=== PATIENT | female | born 1995 | race Two or more races ===

== ENCOUNTER 2020-03-14 20:13 | Emergency (ER) | payer OTHER ==
[~2020-03-14] VITALS: Ht 165.1 cm; Wt 137.0 kg
[2020-03-14 21:19] LABS: CLARITY URINE CLOUDY (CLEAR); COLOR URINE YELLOW (YELLOW); KETONES URINE NEGATIVE (NEGATIVE); LEUKOCYTE ESTERASE URINE 3+ (NEGATIVE); NITRITE URINE NEGATIVE (NEGATIVE); OCCULT BLOOD URINE NEGATIVE (NEGATIVE); PROTEIN URINE NEGATIVE (NEGATIVE); SPECIFIC GRAVITY URINE 1.018 (1.005-1.030)
[2020-03-14] MEDS ORDERED: SODIUM CHLORIDE 0.9% 1,000 ML IV ONE (23:31)
[2020-03-14] MEDS ORDERED: ONDANSETRON HCL 4MG/2ML INJ IV ONE (23:45)
[2020-03-14] MEDS ORDERED: MORPHINE SULFATE 4 MG/ML CPJ (NOT FOR IM USE) IV ONE (23:45)
[2020-03-14 23:57] LABS: BASOPHILS % 0.5 % (0.0-2.0); EOSINOPHILS % 1.1 % (0.0-5.0); HEMATOCRIT. 40.9 % (36.0-48.0); HEMOGLOBIN. 14.1 g/dL (12.0-16.0); LYMPHOCYTES % 17.7 % (20.0-50.0); MEAN CORPUSCULAR HEMOGLOBIN 29.6 pg (28.0-32.0); MEAN CORPUSCULAR VOLUME 86.1 fL (81.0-99.0); MEAN PLATELET VOLUME 7.6 fl (7.4-10.4); MONOCYTES % 4.9 % (2.0-8.0); NEUTROPHILS % 75.8 % (40.0-76.0); PLATELET 315 x1000/uL (130-400); RED BLOOD CELL COUNT 4.75 mill/uL (4.2-5.4); RED CELL DISTRIBUTION WIDTH 13.6 % (11.6-14.6)
[2020-03-15 00:05] LABS: CHLORIDE 107 mEq/L (98-107)
[2020-03-15 02:16] VITALS: BP 107/64
== END 2020-03-15 03:09 | disposition home or self-care (01) ==
LOC: ER 20:13
DX: N83.291 Other ovarian cyst, right side (principal)
CPT/HCPCS: 36415; 76830; 76856; 80048; 81003; 81025; 85025; 96374; 96375; 99284; J2270; J2405; J7030

== ENCOUNTER → 2020-04-08 | Outpatient (CLI) | payer MEDICAID, OTHER ==
[~2020-04-08] MED LIST: DOXY100C2 PO; METR-167 PO; NAPR375T5 PO
== END | disposition home or self-care (01) ==
LOC: LAB 13:35
PROVIDERS: ATTEND Obstetrics & Gynecology
DX: Z01.818 Encounter for other preprocedural examination (principal); Z11.59 Encounter for screening for other viral diseases
CPT/HCPCS: 87635; C9803

== ENCOUNTER 2020-04-12 11:57 | Day surgery (SDC) | payer MEDICAID ==
[~2020-04-12] VITALS: Ht 165.1 cm; Wt 120.7 kg
[~2020-04-12 11:57] MED LIST changes: -DOXY100C2 PO; +LACTATED RINGERS 1,000 ML IV SCH; -METR-167 PO; -NAPR375T5 PO
[2020-04-12 13:06] LABS: HEMATOCRIT 40.1 % (36.0-48.0); HEMOGLOBIN 13.6 g/dL (12.0-16.0); MEAN CORPUSCULAR HEMOGLOBIN 29.5 pg (28.0-32.0); MEAN CORPUSCULAR VOLUME 87.1 fL (81.0-99.0); PLATELET 283 x1000/uL (130-400); RED CELL DISTRIBUTION WIDTH 13.8 % (11.6-14.6)
[2020-04-12 13:10] LABS: CLARITY URINE CLEAR (CLEAR); COLOR URINE YELLOW (YELLOW); KETONES URINE NEGATIVE (NEGATIVE); LEUKOCYTE ESTERASE URINE 1+ (NEGATIVE); NITRITE URINE NEGATIVE (NEGATIVE); OCCULT BLOOD URINE NEGATIVE (NEGATIVE); PH URINE 5.5 (4.5-8.0); PROTEIN URINE NEGATIVE (NEGATIVE); SPECIFIC GRAVITY URINE 1.023 (1.005-1.030); UROBILINOGEN URINE 0.2 E.U./dL (0.2-1.0)
[2020-04-12 13:11] LABS: CHLORIDE 110 mEq/L (98-107)
[2020-04-12 13:12] LABS: UCG SCREEN NEGATIVE
[2020-04-12 13:31] LABS: PARTIAL THROMBOPLASTIN TIME 30.5 sec (23.4-31.0); PROTHROMBIN TIME 10.3 sec (9.6-11.0)
[2020-04-12] MEDS ORDERED: VASOPRESSIN 20 UNIT/ML 1ML ONE (13:59)
[2020-04-12] MEDS ORDERED: BUPIVACAINE HCL/PF 0.5% (5MG/ML) 10ML ONE (13:59)
[2020-04-12] MEDS ORDERED: DOXY100C2 PO (14:10)
[2020-04-12] MEDS ORDERED: NAPR375T5 PO (14:10)
[2020-04-12] MEDS ORDERED: METR-167 PO (14:10)
[2020-04-12] MEDS ORDERED: FENTANYL CITRATE/PF 50MCG/ML 2ML VIAL ONE (14:31)
[2020-04-12] MEDS ORDERED: MIDAZOLAM HCL 2 MG/2 ML VIAL ONE (14:32)
[2020-04-12] MEDS ORDERED: PROPOFOL 200MG/20ML VIAL IV ONE (14:32)
[2020-04-12] MEDS ORDERED: ROCURONIUM BROMIDE 10MG/ML VIAL 5ML IV ONE (14:33)
[2020-04-12] MEDS ORDERED: SKIN ADHESIVE 0.7 GM EA TOP ONE (16:33)
[2020-04-12] MEDS ORDERED: GLYCOPYRROLATE 0.2 MG/ML 2ML VIAL ONE (16:48)
[2020-04-12] MEDS ORDERED: NEOSTIGMINE METHYLSULFATE 1MG/ML 10 ML VIAL ONE (16:48)
[2020-04-12] MEDS ORDERED: ONDANSETRON HCL 4MG/2ML INJ IV PRN (17:15)
[2020-04-12] MEDS: HYDROMORPHONE HCL/PF 2MG/ML CPJ IV PRN ×3 (18:05→18:18)
[2020-04-12] MEDS ORDERED: HYDROCODONE/ACETAMINOPHEN 10/325MG TABLET PO ONE (19:29)
[2020-04-12] MEDS: HYDROCODONE/ACETAMINOPHEN 10/325MG TABLET PO PRN ×2 (19:47→21:35)
[2020-04-12 21:35] VITALS: BP 114/64
== END 2020-04-12 21:55 | disposition home or self-care (01) ==
LOC: OR 11:57
PROVIDERS: ATTEND Obstetrics & Gynecology
DX: N83.202 Unspecified ovarian cyst, left side (principal); N92.6 Irregular menstruation, unspecified; N83.8 Other noninflammatory disorders of ovary, fallopian tube and broad ligament; E66.01 Morbid (severe) obesity due to excess calories; Z68.41 Body mass index [BMI] 40.0-44.9, adult; Z79.899 Other long term (current) drug therapy; Z90.49 Acquired absence of other specified parts of digestive tract
CPT/HCPCS: 36415; 58662; 80048; 81003; 81025; 85027; 85610; 85730; 86850; 86900; 86901; 88304; 93005; J1170; J2250; J2405; J2704; J2710; J3010; J3490; S2900

== ENCOUNTER 2022-02-06 23:46 | Emergency (ER) | payer MEDICAID ==
[~2022-02-06] VITALS: Ht 165.1 cm; Wt 122.0 kg
[~2022-02-06 23:46] MED LIST changes: +DOXY100C5 PO; -LACTATED RINGERS 1,000 ML IV SCH; +METR-167 PO; +NAPR375T5 PO
[2022-02-07] MEDS ORDERED: ACETAMINOPHEN 325MG TABLET PO ONE
[2022-02-07] MEDS ORDERED: BACITRACIN ZINC OINT UDPKT TOP ONE (00:45)
[2022-02-07] MEDS ORDERED: LIDOCAINE HCL/PF 1% 10 MG/ML 5ML VIAL INFIL ONE (00:45)
[2022-02-07] MEDS ORDERED: TETANUS, DIPHTHERIA, PERTUSSIS VAC/PF 0.5ML (>10YR OLD) IM ONE (00:45)
[2022-02-07] MEDS ORDERED: ACETAMINOPHEN 325MG TABLET PO SCH (01:45)
[2022-02-07] MEDS ORDERED: LIDOCAINE HCL 1% 20ML VIAL (Pyxis) INJ INFIL SCH (01:45)
[2022-02-07] MEDS ORDERED: CIPR-263 MT (02:28)
[2022-02-07 02:45] VITALS: BP 125/90
== END 2022-02-07 02:45 | disposition home or self-care (01) ==
LOC: ER 23:46
DX: S91.311A Laceration without foreign body, right foot, initial encounter (principal); E11.9 Type 2 diabetes mellitus without complications; Z90.49 Acquired absence of other specified parts of digestive tract; Z98.890 Other specified postprocedural states; W25.XXXA Contact with sharp glass, initial encounter; Y93.89 Activity, other specified; Y92.488 Other paved roadways as the place of occurrence of the external cause
CPT/HCPCS: 12001; 73630; 90471; 90715; 99283; J3490

== ENCOUNTER 2022-03-24 14:01 | Emergency (ER) | payer MEDICAID, OTHER ==
[~2022-03-24] VITALS: Ht 165.1 cm; Wt 122.0 kg
[~2022-03-24 14:01] MED LIST changes: +CIPR-263 MT
[2022-03-24 14:05] VITALS: BP 120/78
== END 2022-03-24 20:02 | disposition left against medical advice (07) ==
LOC: ER 14:01
DX: Z53.21 Procedure and treatment not carried out due to patient leaving prior to being seen by health care provider (principal)
CPT/HCPCS: 93005